=== PATIENT | female | born 1975 | race Caucasian/White ===

== ENCOUNTER → 2017-04-24 | Outpatient (CLI) | payer OTHER ==
--- NOTE | 2017-04-24 09:22 | RAD ---
DATE: 04/24/2017 EXAM: DIGITAL SCREEN BILAT W/CAD HISTORY: Screening mammogram COMPARISON: 04/22/2012 This study was interpreted with the benefit of Computerized Aided Detection (CAD). The breast parenchyma shows scattered fibroglandular densities. Breast parenchyma level B. FINDINGS: 2-D bilateral digital CC and MLO views of both breasts. There are 2 small subcentimeter masses seen in the posterior depth right breast only seen on MLO view. There is a stable intramammary lymph node in the superior right breast. No suspicious mass, calcification or architectural distortion in the left breast. IMPRESSION: 2 new subcentimeter densities only seen on MLO view. BI-RADS 0, needs additional imaging. BI-RADS CATEGORY: 0 INCOMPLETE: NEEDS ADDITIONAL IMAGING EVALUATION AND/OR PRIOR MAMMOGRAMS FOR COMPARISON. RECOMMENDED FOLLOW-UP: ADD ADDITIONAL IMAGING Mammography is a sensitive method for finding small breast cancers, but it does not detect them all and is not a substitute for careful clinical examination. A negative mammogram does not negate a clinically suspicious finding and should not result in delay in biopsying a clinically suspicious abnormality. "Our facility is accredited by the [employer] Mammography [employer]."
== END | disposition home or self-care (01) ==
LOC: MAMMO 08:48
PROVIDERS: ATTEND Family Medicine
DX: Z12.31 Encounter for screening mammogram for malignant neoplasm of breast (principal)
CPT/HCPCS: G0202; 77067

== ENCOUNTER → 2017-05-02 | Outpatient (CLI) | payer OTHER ==
--- NOTE | 2017-05-02 14:52 | RAD ---
DATE: 05/02/2017 EXAM: DIGITAL DIAGNOSTIC RT, BREAST RIGHT HISTORY: Abnormality suggested in the right breast on screening COMPARISON: Screening examination 8 days earlier This study was interpreted with the benefit of Computerized Aided Detection (CAD ). FINDINGS: Breast Density: . SCATTERED The breast parenchyma shows scattered fibroglandular densities. Breast parenchyma level B Common compression MLO view and an ML view were obtained. On the additional views there are 2 well-defined masses in the breast each measuring approximately 1 cm compatible with that seen on screening. These masses appear to be positioned laterally in the breast on the CC image. Targeted ultrasound was performed. The examination was targeted to the 9 to 10: 00 position. At the 9:00 position there is a well-defined hypoechoic 6 mm mass compatible with that seen on screening. At the 10:00 position there are 2 small masses abutting each other each other. The larger mass measures approximately 6 mm and the smaller approximately 3 mm. The ultrasound features are not prominence and suggest a benign etiology. IMPRESSION: Well-defined masses in the upper outer aspect of the right breast. The mammographic and ultrasound features suggest benign etiology. Follow-up mammography is suggested in 6 months to document stability BI-RADS CATEGORY: 3 PROBABLE BENIGN FINDING(S-SHORT INTERVAL FOLLOW-UP SUGGESTED RECOMMENDED FOLLOW-UP: 6M 6 MONTH FOLLOW-UP PQRS compliance statement: Patient information was entered into a reminder system with a target due date October, for the next right breast mammogram. Mammography is a sensitive method for finding small breast cancers, but it does not detect them all and is not a substitute for careful clinical examination. A negative mammogram does not negate a clinically suspicious finding and should not result in delay in biopsying a clinically suspicious abnormality. "Our facility is accredited by the [employer] Mammography [employer]." MTDD
== END | disposition home or self-care (01) ==
LOC: MAMMO 10:04
PROVIDERS: ATTEND Family Medicine
DX: N63 Unspecified lump in breast (principal)
CPT/HCPCS: 76641; G0206; 77065

== ENCOUNTER → 2017-12-10 | Outpatient (CLI) | payer OTHER | END | disposition home or self-care (01) | LOC: MAMMO 08:07 | DX: N63.10 Unspecified lump in the right breast, unspecified quadrant (principal); M17.0 Bilateral primary osteoarthritis of knee | CPT/HCPCS: 73562; 77065; G0279 ==